=== PATIENT | male | born 1965 ===

== ENCOUNTER → 2017-03-20 | Outpatient (CLI) | payer BC ==
[~2017-03-20] MED LIST: COZAAR100 MG PO; TRANDATE 100MG100 MG PO; VERAPAMIL120 MG/TA1 PO; ZYLOPRIM 300MG300 MG PO
[2017-03-20 12:45] LABS: HIV 1/2 Antibodies Non-Reactive; HIV-1p24 Antigen Non-Reactive
== END ==
LOC: COL.LAB 11:55
PROVIDERS: Orthopaedic Surgery
DX: Z01.812 Encounter for preprocedural laboratory examination (principal); M17.12 Unilateral primary osteoarthritis, left knee